=== PATIENT | female | born 1950 | race Caucasian/White ===

== ENCOUNTER 2017-04-01 08:50 | Outpatient (CLI) | payer OTHER | END 2017-04-01 08:51 | disposition critical access hospital (66) | DX: M25.551 Pain in right hip (principal); M25.511 Pain in right shoulder; R51 Headache; W18.30XA Fall on same level, unspecified, initial encounter | CPT/HCPCS: A0425; A0427 ==

== ENCOUNTER 2017-04-01 09:08 | Emergency (ER) | payer OTHER ==
--- NOTE | 2017-04-01 09:23 | ED Physician Documentation ---
PD HPI LOWER EXT INJURY - Stated complaint Stated Complaint: GLF - RT HIP PAIN - Chief complaint Chief Complaint: Ext Problem - History obtained from History obtained from: Patient - History of Present Illness PD HPI LOW EXT INJURY LOCATION: Right, Hip, Other (also struck elbow) Type of injury: Fall (has prior left hip surgery and has poor balance and position sense due to nueropathy, so fell yesterday. No syncope.) Where injury occurred: Home Timing - onset: Yesterday Timing - details: Abrupt onset, Still present Worsened by: Moving, Other (walking) Associated symptoms: Weakness (chronicaly). No: Swelling Contributing factors: Prior ortho surgery (had fracture of that hip remotely with pins, and those were removed after healing due to pains from screws.). No : Anticoagulated Similar symptoms before: Diagnosis (prior hip fracture) Recently seen: Not recently seen Review of Systems Cardiac: denies: Chest pain / pressure GI: denies: Abdominal Pain Neurologic: denies: Focal weakness, Altered mental status, Headache, Head injury PD PAST MEDICAL HISTORY - Past Medical History Neuro: Headache/migraine, Peripheral neuropathy Endocrine/Autoimmune: Other GI: GERD : Incontinence HEENT: Glaucoma Psych: Depression Musculoskeletal: Osteoporosis, Chronic back pain, Other Derm: None - Past Surgical History Past Surgical History: Yes Ortho: Spine surgery - Present Medications Home Medications: Ambulatory Orders Medication Instructions Recorded Confirmed Escitalopram Oxalate [Lexapro] 40 mg PO DAILY 03/31/14 04/01/17 Pantoprazole Sodium 20 mg PO DAILY 12/04/15 04/01/17 Gabapentin 900 mg PO BID 03/10/16 04/01/17 Docusate Sodium 100 mg PO DAILY #30 capsule 04/01/17 Hydrocodone/Acetaminophen [[place] 1 each PO Q6H PRN #20 tablet 04/01/17 5-325 Tablet] Naproxen 375 mg PO BID #20 tablet 04/01/17 Trazodone HCl 50 mg PO DAILY 04/01/17 04/01/17 - Allergies Allergies/Adverse Reactions: Allergies Allergy/AdvReac Type Severity Reaction Status Date / Time aspirin [From Percodan] Allergy Unknown Verified 04/22/14 15:12 erythromycin base Allergy Unknown Verified 04/22/14 15:12 [Erythromycin Base] oxycodone HCl * Allergy Unknown Verified 04/22/14 15:12 [From Percodan] oxycodone terephthalate * Allergy Unknown Verified 04/22/14 15:12 [From Percodan] Penicillins Allergy Unknown Verified 04/22/14 15:12 - Social History Does the pt smoke?: No Smoking Status: Former smoker Does the pt drink ETOH?: Yes Does the pt have substance abuse?: No - POLST Patient has POLST: No PD ED PE NORMAL - Vitals Vital signs reviewed: Yes - General General: Alert and oriented X 3, Well developed/nourished - HEENT HEENT: Atraumatic - Neck Neck: Supple, no meningeal sign, No bony TTP, No adenopathy - Cardiac Cardiac: RRR, No murmur - Respiratory Respiratory: Clear bilaterally, Other (no chestwall tenderness) - Back Back: No spinal TTP - Derm Derm: Normal color, Warm and dry - Extremities Extremities: No edema, No calf tenderness / cord, Other (right elbow tender posteriorly. Can fully extend. No pain with supination. Right hip tender over trochanter area. Not painful for impaction nor straction, but does hurt with rotation. ) Results - Vitals Vitals: Oxygen O2 Source Room air - Rads (name of study) hip Radiology: Prelim report reviewed (possible trochanteric fracture) hip CT Radiology: Prelim report reviewed (greater trochanteric fracture, but not through main neck) elbow xray Radiology: Prelim report reviewed (no fracture; small effusion) PD MEDICAL DECISION MAKING - ED course Complexity details: reviewed results, considered differential, d/w patient, d/w sales consultant (Dr. Heredia looked at CT scan as well) Departure - Departure Disposition: 01 Home, Self Care Clinical Impression: Facial contusion Qualifiers: Encounter type: initial encounter Qualified Code(s): S00.83XA - Contusion of other part of head, initial encounter Greater trochanter fracture Qualifiers: Encounter type: initial encounter Fracture type: closed Fracture alignment: nondisplaced Laterality: right Qualified Code(s): S72.114A - Nondisplaced fracture of greater trochanter of right femur, initial encounter for closed fracture Elbow contusion Qualifiers: Encounter type: initial encounter Laterality: right Qualified Code(s): S50.01XA - Contusion of right elbow, initial encounter Fall from slip, trip, or stumble Qualifiers: Encounter type: initial encounter Qualified Code(s): W01.0XXA - Fall on same level from slipping, tripping and stumbling without subsequent striking against object, initial encounter Condition: Stable Record reviewed to determine appropriate education?: Yes Follow-Up: Vaibhav Ruiz MD [Provider Admit Priv/Credential] - Prescriptions: Docusate Sodium 100 mg PO DAILY #30 capsule Naproxen 375 mg PO BID #20 tablet Hydrocodone/Acetaminophen [[place] 5-325 Tablet] 1 each PO Q6H PRN #20 tablet PRN Reason: Pain Comments: Activity as tolerated with walker/wheelchair. Naproxen low dose twice daily for a week if tolerated. Add Tylenol or hydrocodone for pain every 6 hours if needed for pain. Daily stool softener and drink lots of fluids. Other usual medications. Discharge Date/Time: 04/01/17 14:52
[2017-04-01] MEDS ORDERED: HYDROmorphone 1 MG/ML SYRINGE IVP STA ×2 (10:10→12:02)
[2017-04-01] MEDS ORDERED: HYDROmorphone 1 MG/ML SYRINGE ONE ×2 (10:18→12:06)
--- NOTE | 2017-04-01 11:32 | XRAY Report ---
EXAM: RIGHT HIP AND PELVIS RADIOGRAPHY EXAM DATE: 04/01/2017 11:00 AM. HISTORY: Fall with injury. COMPARISONS: Right femur series 03/31/2014. TECHNIQUE: 1 view of the pelvis and 1 view of the hip. FINDINGS: Bones: Slight fragmentation is noted at the greater trochanter with minimal lucency, not previously s een. Nondisplaced greater trochanteric or intertrochanteric fracture is not excluded. Postoperative c hanges from lumbosacral spinal fusion procedure are noted. Joints: The bilateral hip, pubis symphysis, and sacroiliac joints are preserved. Soft Tissues: Normal. No soft tissue swelling. IMPRESSION: Central lucency and fragmentation in the region of the right greater trochanter. Nondispl aced fracture is not excluded. Consider CT for further evaluation. [facility] Referring Provider Line: [phone] SITE ID: [id number]
--- NOTE | 2017-04-01 11:37 | XRAY Report ---
EXAM: RIGHT/LEFT ELBOW RADIOGRAPHY EXAM DATE: 04/01/2017 11:01 AM. CLINICAL HISTORY: Elbow pain status post fall with injury. COMPARISON: None. TECHNIQUE: 3 views. FINDINGS: Bones: The bones are osteopenic. No fractures or bone lesions. Joints: Small joint effusion. Soft Tissues: Normal. No soft tissue swelling. IMPRESSION: Small joint effusion at the elbow with no fracture identified. [facility] Referring Provider Line: [phone] SITE ID: [id number]
[2017-04-01] MEDS ORDERED: LORazepam 2 MG/ML SYRINGE IVP STA (12:05)
[2017-04-01] MEDS ORDERED: LORazepam 2 MG/ML SYRINGE ONE (12:06)
--- NOTE | 2017-04-01 13:21 | CT Preliminary Report ---
Exam: CT Lower Extremity Right W/O IMPRESSION: 1. Small nondisplaced acute hairline fractures are seen in the right greater trochanter not extending into the femoral shaft, femoral neck or the lesser trochanter. 2. No acute fracture in the hip joint. Right hip mild subcapital deformity in the femoral neck consis tent with old fracture deformity status post prior internal fixation and subsequent removal of hardwa re. Screw tracks are still seen in the femoral neck. 3. Prior L5-S1 posterior instrumental fusion. Lucency is present around the 4 pedicle screws suggesti ve of mild loosening. 4. Degenerative changes in the sacroiliac joints, pubic symphysis and both hips. 5. Osteopenia. [facility] SITE ID: [id number]
--- NOTE | 2017-04-01 13:24 | CT Report ---
EXAM: CT BONY PELVIS WITHOUT CONTRAST EXAM DATE: 04/01/2017 12:53 PM. CLINICAL HISTORY: Fall. Likely trochanter fracture on xray. COMPARISON: Right hip series 04/01/2017. TECHNIQUE: Thin-section axial images were acquired of the pelvis without contrast. Post-processing: C oronal and sagittal reformats. Other: None. In accordance with CT protocol optimization, one or more of the following dose reduction techniques w ere utilized for this exam: automated exposure control, adjustment of mA and/or KV based on patient s ize, or use of iterative reconstructive technique. FINDINGS: Bones: Osteopenia. Right hip mild subcapital deformity in the femoral neck consistent with old fractu re deformity status post prior internal fixation and subsequent removal of hardware. Screw tracks are still seen in the femoral neck. Small nondisplaced acute hairline fractures are seen in the right gr eater trochanter not extending into the femoral shaft, femoral neck or the lesser trochanter. Prior L 5-S1 posterior instrumental fusion. Lucency is present around the 4 pedicle screws suggestive of mild loosening. Sacroiliac Joints: Degenerative changes are present. No widening, erosions, or sclerosis. Symphysis Pubis: Degenerative changes are present. Right Hip: Mild osteoarthritis. No calcified loose bodies. Left Hip: T Mild osteoarthritis. No calcified loose bodies. Musculature: Severe fatty atrophy of bilateral gluteus minimus, mildly in the disk medius. Pelvic Cavity: The visualized bowel, bladder, and reproductive organs are unremarkable on this noncon trast exam. Other: No lymphadenopathy. No free air or free fluid. The other visualized soft tissues are unremarka ble. IMPRESSION: 1. Small nondisplaced acute hairline fractures are seen in the right greater trochanter not extending into the femoral shaft, femoral neck or the lesser trochanter. 2. No acute fracture in the hip joint. Right hip mild subcapital deformity in the femoral neck consis tent with old fracture deformity status post prior internal fixation and subsequent removal of hardwa re. Screw tracks are still seen in the femoral neck. 3. Prior L5-S1 posterior instrumental fusion. Lucency is present around the 4 pedicle screws suggesti ve of mild loosening. 4. Degenerative changes in the sacroiliac joints, pubic symphysis and both hips. 5. Osteopenia. [facility] Referring Provider Line: [phone] SITE ID: [id number]
[2017-04-01] MEDS ORDERED: KETOROLAC 60 MG/2 ML VIAL IVP STA (14:06)
[2017-04-01] MEDS ORDERED: HYDROcod/ACETAM 5/325 MG TABLET PO STA (14:06)
[2017-04-01] MEDS ORDERED: KETOROLAC 30 MG/ML VIAL ONE (14:16)
[2017-04-01] MEDS ORDERED: HYDROcod/ACETAM 5/325 MG TABLET ONE (14:17)
[2017-04-01 14:35] VITALS: BP 154/80
--- NOTE | 2017-04-01 15:51 | CONSULTATION NOTE ---
DATE OF CONSULTATION: 04/01/2017 00:00:00 REQUESTING PROVIDER: REFERRING PHYSICIAN: Dr. Chen of the emergency room. CHIEF COMPLAINT: "My right hip hurts." HISTORY OF PRESENT ILLNESS: The patient is a 66-year-old female who apparently fell onto he r right hip last evening. Noted immediate pain and difficulty standing and weightbearing on the right lower extremity. Her medical history is significant for a prior right hip fracture that required a p in fixation in the past. Pins have been removed and fracture healed uneventfully. Because her symptom s persisted by this morning, she was taken by her to the emergency room for further evaluatio n of her recent injury. The patient denies any loss of conscious, nausea, vomiting, or other injuries as a result of this recent fall. No distal weakness or numbness noted. PHYSICAL EXAMINATION: The patient's right hip was evaluated. She has primarily tenderness on palpatio n over the greater trochanter. No anterior groin tenderness on palpation. Minimal leg deformity was n oted. The leg was slightly externally rotated more than the opposite side. No gross shortening was no jan. Had some mild pain with hip flexion and rotation. Had primarily posterior trochanteric tendernes s on palpation. Moves her toes well. Sensation intact throughout. Good capillary filling noted. IMAGES: X-rays taken of the right hip were reviewed and showed the suggestion of possible nondisplace d small avulsion fracture off the tip of the greater trochanter. CT scan of the right hip confirmed what appeared to be a minimally displaced avulsion type fracture o f the greater trochanter. Does not appear to be propagating to the lesser trochanter at all. ASSESSMENT: 1. Minimally displaced avulsion type fracture of the right greater trochanter. 2. Status post left femoral neck fracture that required a pin fixation - fracture healed uneventfully and the hardware has been removed. PLAN: Advise the patient that surgery does not appear to be indicated at this point. Would treat her fracture symptomatically. We will try local ice and oral analgesics. May be weightbearing as tolerate d in this right lower extremity, ambulating with walker, weightbearing as tolerated. She should likel y followup with orthopedic clinic in about 2 weeks for followup clinical examination and x-rays as ne eded. JOB #: [id number] EXT JOB #:[id number]
== END 2017-04-01 14:52 | disposition home or self-care (01) ==
LOC: EDUNIT# → ED 09:08
DX: S72.114A Nondisplaced fracture of greater trochanter of right femur, initial encounter for closed fracture (principal); S00.83XA Contusion of other part of head, initial encounter; S50.01XA Contusion of right elbow, initial encounter; W01.0XXA Fall on same level from slipping, tripping and stumbling without subsequent striking against object, initial encounter; Y92.019 Unspecified place in single-family (private) house as the place of occurrence of the external cause; K21.9 Gastro-esophageal reflux disease without esophagitis; G62.9 Polyneuropathy, unspecified; Z87.891 Personal history of nicotine dependence
CPT/HCPCS: 73080; 73502; 73700; 96374; 96375; 96376; 99284; A9270; J1170; J2060

== ENCOUNTER 2017-12-05 09:49 | Emergency (ER) | payer MEDICARE ==
[2017-12-05 11:22] VITALS: BP 150/78
--- NOTE | 2017-12-05 12:06 | ED Physician Documentation ---
History of Present Illness - Stated complaint Stated Complaint: RT LEG SWOLLEN - Chief complaint Chief Complaint: Ext Problem - History obtained from History obtained from: Patient, Family - History of Present Illness Timing: How many weeks ago (1) - Additonal information Additional information: 66-year-old female is began to experience some swelling in her right calf about 1 week ago she is undergoing some physical therapy after a hip fracture in March of last year and the physical therapist asked her to come to the ED for evaluation prior to exercising today. The patient is not having a lot of pain in the leg but does note the swelling and firmness to the posterior aspect of the calf. Review of Systems Constitutional: denies: Fever Eyes: denies: Decreased vision Ears: denies: Ear pain Nose: denies: Congestion Throat: denies: Sore throat Cardiac: denies: Chest pain / pressure, Palpitations Respiratory: denies: Dyspnea, Cough GI: denies: Abdominal Pain, Nausea, Vomiting : denies: Dysuria Skin: denies: Rash Musculoskeletal: reports: Extremity swelling. denies: Neck pain, Back pain, Joint pain, Joint swelling, Pain with weight bearing Neurologic: denies: Generalized weakness, Focal weakness, Numbness PD PAST MEDICAL HISTORY - Past Medical History Neuro: Headache/migraine, Peripheral neuropathy Endocrine/Autoimmune: Other GI: GERD : Incontinence HEENT: Glaucoma Psych: Depression Musculoskeletal: Osteoporosis, Chronic back pain, Other Derm: None - Past Surgical History Past Surgical History: Yes Ortho: Spine surgery - Present Medications Home Medications: Ambulatory Orders Medication Instructions Recorded Confirmed Gabapentin 900 mg PO BID 03/10/16 12/05/17 Hydrocodone/Acetaminophen [[place] 1 each PO Q6H PRN #20 tablet 04/01/17 12/05/17 5-325 Tablet] Trazodone HCl 50 mg PO DAILY 04/01/17 12/05/17 Butalbital/Aspirin/Caffeine 50 mg PO PRN PRN 12/05/17 12/05/17 [Fiorinal 50-325-40 mg Capsule] Escitalopram Oxalate [Lexapro] 40 mg PO DAILY 12/05/17 12/05/17 - Allergies Allergies/Adverse Reactions: Allergies Allergy/AdvReac Type Severity Reaction Status Date / Time aspirin [From Percodan] Allergy Unknown Verified 12/05/17 11:32 erythromycin base Allergy Unknown Verified 12/05/17 11:32 [Erythromycin Base] oxycodone HCl * Allergy Unknown Verified 12/05/17 11:32 [From Percodan] oxycodone terephthalate * Allergy Unknown Verified 12/05/17 11:32 [From Percodan] Penicillins Allergy Unknown Verified 12/05/17 11:32 - Social History Does the pt smoke?: No Smoking Status: Never smoker Does the pt drink ETOH?: Yes Does the pt have substance abuse?: No - POLST Patient has POLST: No PD ED PE NORMAL - Vitals Vital signs reviewed: Yes (normal) - General General: Alert and oriented X 3, No acute distress, Well developed/nourished - HEENT HEENT: Atraumatic, PERRL - Respiratory Respiratory: No respiratory distress - Derm Derm: Normal color, Warm and dry, No rash - Extremities Extremities: No deformity, Other (There is swelling and firmness to the posterior calf on the right side. There is not a lot of tenderness and the swelling extends from the popliteil fossa to the ankle. The distal n/v is intact. ) - Neuro Neuro: Alert and oriented X 3, data consultant 2-12 intact, No motor deficit, No sensory deficit, Normal speech Eye Opening: Spontaneous Motor: Obeys Commands Verbal: Oriented GCS Score: 15 - Psych Psych: Normal mood, Normal affect Results - Vitals Vitals: Vital Signs - 24 hr 12/05/17 12/05/17 10:07 11:20 Temperature 36.6 C Heart Rate 70 66 Respiratory 18 18 Rate Blood Pressure 128/59 L 150/78 H O2 Saturation 99 100 Oxygen O2 Source Room air - Rads (name of study) duplex Radiology: Prelim report reviewed (no DVT), EMP read indepedently, See rad report PD MEDICAL DECISION MAKING - ED course Complexity details: reviewed results, re-evaluated patient, considered differential, d/w patient, d/w family ED course: 66 y/o female with a history of left hip fracture 7 months ago has been in physical therapy and continues to have some problem with the right leg and over the past week she has noticed swelling in the foot and the calf. She has not had this previously and she does not think that she is doing more than she usually has part of the amount of physical activity she is doing. She was sent here today for evaluation of deep vein thrombosis and this is not present. She will be able to return to her physical therapy. I believe the swelling she is having her leg is related to the prior injury. Departure - Departure Disposition: 01 Home, Self Care Clinical Impression: Strain of calf muscle Qualifiers: Encounter type: initial encounter Laterality: right Qualified Code(s): S86.811A - Strain of other muscle(s) and tendon(s) at lower leg level, right leg , initial encounter Condition: Stable Instructions: ED Strain Muscle Ext Follow-Up: Your, doctor [Other]
--- NOTE | 2017-12-05 16:18 | Ultrasound Report ---
DATE OF SERVICE: 12/05/2017 RIGHT LEG VENOUS DUPLEX: 12/05/2017 CLINICAL INDICATION: Swelling. COMPARISON: 01/20/2016 TECHNIQUE: Real-time sonographic vascular imaging was performed by the brown[place] program coordinator through the right leg utilizing both color flow and Doppler spectral analysis. Multiple client account representative static images were saved for review. FINDINGS: A right lower extremity venous sonogram is performed revealing the common femoral, superficial femoral, profunda femoris, and popliteal veins to be adequately visualized without intraluminal defects. There is normal venous compression, augmentation, phasicity, and spontaneity of venous flow. In the calf, the visualized more cephalad portions of posterior tibial and peroneal veins are grossly compressible, without filling defects. IMPRESSION: NO EVIDENCE OF DEEP VENOUS THROMBOSIS. TD: 12/05/2017 17:17
== END 2017-12-05 13:10 | disposition home or self-care (01) ==
LOC: ED 09:49
DX: S86.811A Strain of other muscle(s) and tendon(s) at lower leg level, right leg, initial encounter (principal); X58.XXXA Exposure to other specified factors, initial encounter; G62.9 Polyneuropathy, unspecified
CPT/HCPCS: 99283

== ENCOUNTER 2018-05-23 10:09 | Emergency (ER) | payer MEDICARE ==
[2018-05-23 10:32] VITALS: BP 145/62
--- NOTE | 2018-05-23 11:08 | XRAY Report ---
Procedure Date: 05/23/2018 Accession Number: [id number] / [id number] Procedure: XR - Foot 3 View LT CPT Code: FULL RESULT: EXAM: LEFT FOOT RADIOGRAPHY EXAM DATE: 05/23/2018 10:52 AM. CLINICAL HISTORY: Foot pain after injury two week ago, swollen. COMPARISON: None. TECHNIQUE: 3 views. FINDINGS: Bones: Probable nondisplaced, mildly angulated fracture through the neck of the second metatarsal. Oblique fracture through the neck of the third metatarsal with one half shaft width displacement. No definite healing change is demonstrated at either fracture site. Diffuse demineralization. Joints: No dislocation. Soft Tissues: Mild soft tissue swelling. IMPRESSION: 1. Acute/subacute displaced fracture of the distal third metatarsal. 2. Probable nondisplaced acute/subacute fracture of the distal second metatarsal. [facility]
--- NOTE | 2018-05-23 13:20 | ED Physician Documentation ---
PD HPI LOWER EXT INJURY - Stated complaint Stated Complaint: LF FOOT INJURY - Chief complaint Chief Complaint: Ext Problem - History obtained from History obtained from: Patient, Family - History of Present Illness PD HPI LOW EXT INJURY LOCATION: Left, Foot Type of injury: Fall, Twist Where injury occurred: Home Timing - onset: How many days ago (10) Timing - details: Abrupt onset, Still present Improved by: Rest, Immobilization Worsened by: Moving, Palpating Associated symptoms: Swelling Contributing factors: Prior ortho surgery Similar symptoms before: Has not had sx before Recently seen: Not recently seen - Additional information Additional information: patient is a 67 year old female with a history of osteopenia who is presenting to the emergency department for left foot pain. patient states that she tripped over a baby gate about 10 days ago. patient land on her foot and the pain has persisted since that time so she came to the emergency department to be evaluated. Review of Systems Ten Systems: 10 systems reviewed and negative PD PAST MEDICAL HISTORY - Past Medical History Past Medical History: Yes Endocrine/Autoimmune: Other GI: GERD : Incontinence HEENT: Glaucoma Psych: Depression, Anxiety Musculoskeletal: Osteoporosis, Chronic back pain, Other Derm: None Other Past Medical History: neuropathy - Past Surgical History Past Surgical History: Yes Ortho: Spine surgery /CAREER TECHNICAL SUPERVISOR: Hysterectomy - Present Medications Home Medications: Ambulatory Orders Medication Instructions Recorded Confirmed Gabapentin 900 mg PO BID 03/10/16 12/05/17 Hydrocodone/Acetaminophen [[place] 1 each PO Q6H PRN #20 tablet 04/01/17 12/05/17 5-325 Tablet] Trazodone HCl 50 mg PO DAILY 04/01/17 12/05/17 Butalbital/Aspirin/Caffeine 50 mg PO PRN PRN 12/05/17 12/05/17 [Fiorinal 50-325-40 mg Capsule] Escitalopram Oxalate [Lexapro] 40 mg PO DAILY 12/05/17 12/05/17 - Allergies Allergies/Adverse Reactions: Allergies Allergy/AdvReac Type Severity Reaction Status Date / Time aspirin [From Percodan] Allergy Unknown Verified 12/05/17 11:32 erythromycin base Allergy Unknown Verified 12/05/17 11:32 [Erythromycin Base] oxycodone HCl * Allergy Unknown Verified 12/05/17 11:32 [From Percodan] oxycodone terephthalate * Allergy Unknown Verified 12/05/17 11:32 [From Percodan] Penicillins Allergy Unknown Verified 12/05/17 11:32 - Social History Does the pt smoke?: No Smoking Status: Never smoker Does the pt drink ETOH?: Yes Does the pt have substance abuse?: Yes Substance Use and Type: Marijuana - Immunizations Immunizations are current?: Yes - POLST Patient has POLST: No PD ED PE NORMAL - Vitals Vital signs reviewed: Yes - General General: Alert and oriented X 3 - HEENT HEENT: Atraumatic - Cardiac Cardiac: RRR - Respiratory Respiratory: No respiratory distress - Neuro Neuro: Alert and oriented X 3, No motor deficit, No sensory deficit Eye Opening: Spontaneous PD ED PE EXPANDED - Cardiac Cardiac: Pedal strong equal - Extremities Extremities: Left foot (tenderness and swelling of left foot) Results - Vitals Vitals: Vital Signs - 24 hr 05/23/18 10:26 Temperature 36.6 C Heart Rate 69 Respiratory 16 Rate Blood Pressure 145/62 H O2 Saturation 100 Oxygen O2 Source Room air - Rads (name of study) left foot Radiology: Final report received (2nd and possible third metatarsal fracture(s)) PD MEDICAL DECISION MAKING - ED course Complexity details: reviewed old records, reviewed results, re-evaluated patient , considered differential, d/w patient ED course: Patient was seen and examined at bedside. Patient had already been to imaging. results were reviewed and consistent acute/sub acute fractures. Patient was placed in a boot and a disc was made for the patient. Patient required no further inpatient work up and was stable for discharge with outpatient follow up. - Sepsis Event Vital Signs: Vital Signs - 24 hr 05/23/18 10:26 Temperature 36.6 C Heart Rate 69 Respiratory 16 Rate Blood Pressure 145/62 H O2 Saturation 100 Oxygen O2 Source Room air Departure - Departure Disposition: 01 Home, Self Care Clinical Impression: Foot fracture, left Condition: Good Instructions: ED Boot Aircast Walker, ED Fx Foot Follow-Up: Aleks Heredia MD [Provider Admit Priv/Credential] - Within 3 Days Comments: Your symptoms today are being caused by a broken foot. you have been given a disc and an air cast. You should follow up with your doctor or Dr. Heredia's office. you should try to keep it elevated as much as possible. You should ice your foot at least 4 times a day. You may return to the emergency department at any time for new, worsening or uncontrollable symptoms.
== END 2018-05-23 13:39 | disposition home or self-care (01) ==
LOC: ED 10:09
DX: S92.332A Displaced fracture of third metatarsal bone, left foot, initial encounter for closed fracture (principal); W22.8XXA Striking against or struck by other objects, initial encounter; Y92.009 Unspecified place in unspecified non-institutional (private) residence as the place of occurrence of the external cause; X50.9XXA Other and unspecified overexertion or strenuous movements or postures, initial encounter; G62.9 Polyneuropathy, unspecified; Z79.82 Long term (current) use of aspirin
CPT/HCPCS: 99282; 99283

== ENCOUNTER 2020-08-22 10:07 | Outpatient (CLI) | payer MEDICARE | END 2020-08-22 23:59 | disposition home or self-care (01) | LOC: LAB.R 10:07 | PROVIDERS: ATTEND General Practice | DX: R19.7 Diarrhea, unspecified (principal) | CPT/HCPCS: 81599; 83630; 87045; 87046; 87177; 87209; 87329; 87427; 87493 ==

== ENCOUNTER 2020-09-19 08:00 | Outpatient (CLI) | payer MEDICARE | END 2020-09-19 23:59 | disposition home or self-care (01) | LOC: LAB.R 08:00 | PROVIDERS: ATTEND General Practice | DX: R19.7 Diarrhea, unspecified (principal) | CPT/HCPCS: 87493 ==

== ENCOUNTER 2021-04-21 10:36 | Outpatient (CLI) | payer MEDICARE ==
[2021-04-21 11:05] LABS: CALCIUM, IONIZED 1.15 mmol/L (1.15-1.33); VBG PH 7.37 (7.31-7.41)
[2021-04-21 11:18] LABS: ALT ALANINE AMINOTRANSFERASE < 10 IU/L (10-60); AST ASPARTATE AMINOTRANSFERASE 37 IU/L (10-42); CREATININE 0.5 mg/dL (0.4-1.0); GFR - MDRD 121 (>89); POTASSIUM 3.7 mmol/L (3.5-5.0)
== END 2021-04-21 10:37 | disposition home or self-care (01) ==
LOC: LAB 10:36
DX: E21.3 Hyperparathyroidism, unspecified (principal); R68.89 Other general symptoms and signs
CPT/HCPCS: 36415; 82330; 82565; 83970; 84132; 84450; 84460

== ENCOUNTER 2023-03-31 10:25 | Outpatient (CLI) | payer MEDICARE ==
[2023-03-31 11:25] LABS: CREATININE 0.4 mg/dL (0.4-1.0)
[2023-03-31 11:47] LABS: ESTIMATED AVERAGE GLUCOSE 108 mg/dL (70-100); HEMOGLOBIN A1c% 5.4 % (4.27-6.07)
== END 2023-03-31 10:26 | disposition home or self-care (01) ==
LOC: LAB 10:25
PROVIDERS: ATTEND Internal Medicine
DX: M81.0 Age-related osteoporosis without current pathological fracture (principal); R71.8 Other abnormality of red blood cells
CPT/HCPCS: 36415; 82306; 82565; 82607; 82947; 83036; 84450

== ENCOUNTER 2023-09-13 10:53 | Outpatient (CLI) | payer MEDICARE | END 2023-09-13 10:54 | disposition critical access hospital (66) | LOC: EMS 10:53 | DX: F41.9 Anxiety disorder, unspecified (principal); R51.9 Headache, unspecified; G20.C Parkinsonism, unspecified; Z74.01 Bed confinement status; Z74.2 Need for assistance at home and no other household member able to render care | CPT/HCPCS: A0425; A0429 ==

== ENCOUNTER 2023-09-13 11:16 | Emergency (ER) | payer MEDICARE ==
[2023-09-13] MEDS ORDERED: LORazepam 2 MG/ML VIAL IM STA ×2 (12:04→14:23)
--- NOTE | 2023-09-13 12:06 | ED Physician Documentation ---
History of Present Illness - Stated complaint Stated Complaint: ANXIETY - Chief complaint Chief Complaint: MHE - History obtained from History obtained from: Patient - History of Present Illness Timing: Today - Additonal information Additional information: Jazz James is a 72-year-old female with advanced Parkinson's who is bedridden. She is entirely dependent on her for care at home. 3 days ago he had a syncopal episode on his deck and collapsed with a GI bleed. He is still here at the hospital undergoing test and he has developed some paranoia and suicidal ideation. The patient's brother and sister came to her aid at her home for 2 days. They are leaving today. The patient has no care at home and she is unable to get out of bed by herself or to walk. Review of Systems Constitutional: denies: Fever Eyes: denies: Decreased vision Ears: denies: Ear pain Nose: denies: Rhinorrhea / runny nose, Congestion Throat: denies: Oral lesions / sores Cardiac: denies: Chest pain / pressure, Palpitations Respiratory: denies: Dyspnea, Cough GI: denies: Abdominal Pain, Nausea, Constipation, Diarrhea : reports: Incontinent. denies: Dysuria, Frequency Musculoskeletal: denies: Neck pain, Back pain, Extremity pain PD PAST MEDICAL HISTORY - Past Medical History Past Medical History: Yes Endocrine/Autoimmune: Other GI: GERD : Incontinence HEENT: Glaucoma Psych: Depression, Anxiety Musculoskeletal: Osteoporosis, Chronic back pain, Other Derm: None - Past Surgical History Past Surgical History: Yes Ortho: Spine surgery /[employer]: Hysterectomy - Present Medications Home Medications: Ambulatory Orders Medication Instructions Recorded Confirmed Gabapentin 900 mg PO BID 03/10/16 09/13/23 Hydrocodone/Acetaminophen [[place] 1 each PO Q6H PRN #20 tablet 04/01/17 09/13/23 5-325 Tablet] Trazodone HCl 50 mg PO DAILY 04/01/17 09/13/23 Butalbital/Aspirin/Caffeine 50 mg PO PRN PRN 12/05/17 09/13/23 [Fiorinal 50-325-40 mg Capsule] Escitalopram Oxalate [Lexapro] 40 mg PO DAILY 12/05/17 09/13/23 - Allergies Allergies/Adverse Reactions: Allergies Allergy/AdvReac Type Severity Reaction Status Date / Time aspirin [From Percodan] Allergy Unknown Verified 09/13/23 11:26 erythromycin base Allergy Unknown Verified 09/13/23 11:26 [Erythromycin Base] oxycodone HCl * Allergy Unknown Verified 09/13/23 11:26 [From Percodan] oxycodone terephthalate * Allergy Unknown Verified 09/13/23 11:26 [From Percodan] Penicillins Allergy Unknown Verified 09/13/23 11:26 - Social History Does the pt smoke?: No Smoking Status: Never smoker Does the pt drink ETOH?: No Does the pt have substance abuse?: No - Immunizations Immunizations are current?: Yes - POLST Patient has POLST: No PD ED PE NORMAL - Vitals Vital signs reviewed: Yes (normal ) - General General: Alert and oriented X 3, No acute distress, Well developed/nourished - HEENT HEENT: Atraumatic, PERRL, EOMI - Neck Neck: Supple, no meningeal sign, No bony TTP - Cardiac Cardiac: RRR, No murmur - Respiratory Respiratory: No respiratory distress, Clear bilaterally - Abdomen Abdomen: Normal bowel sounds, Soft, Non tender, Non distended, No organomegaly - Back Back: No CVA TTP, No spinal TTP - Derm Derm: Normal color, Warm and dry, No rash - Extremities Extremities: No deformity, No edema - Neuro Neuro: Alert and oriented X 3, classified ad taker 2-12 intact, No sensory deficit, Normal speech, Other (ambulation and trial of standing was not performed. ) Eye Opening: Spontaneous Motor: Obeys Commands Verbal: Oriented GCS Score: 15 - Psych Psych: Normal mood, Normal affect Results - Vitals Vitals: Vital Signs - 24 hr 09/13/23 11:22 Temperature 35.9 C L Heart Rate 91 Respiratory 16 Rate Blood Pressure 139/80 H O2 Saturation 99 Oxygen O2 Source Room air PD Medical Decision Making - ED course Complexity details: considered differential, d/w patient ED course: 72-year-old Jazz James has a history of Parkinson disease that is advanced and she is disabled by this. She is unable to care for herself at home and her is currently in the hospital. Family were caring for her until today and she has now come to the hospital unable to care for herself. She is unable to get out of bed or to walk. Her is her usual polisher sand. She is anxious but otherwise not ill. She is not a safe disposition from the ED. The social media editor is consulted in the case and is unable to arrange a polisher sand for the patient and she is boarded in the ED overnight. Her is hospitalized for blood loss anemia and he has become suicidal. At shift change her care is turned over to the oncoming ED physician anticipating a disposition tomorrow for which I will likely be present. She was anxious enough that it took 2 mg of IM ativan to help with anxiety. Departure - Departure Forms: PCP List
[2023-09-13] MEDS: CARBIDOPA/LEVODOPA 25 MG/100 MG TABLET PO SCH (20:56)
[2023-09-13] MEDS: LORazepam 1 MG TABLET PO SCH (20:56)
--- NOTE | 2023-09-13 21:27 | ED Physician Documentation ---
ED Addendum - Addendum Addendum: 09/13/23 21:27 Note changes during my shift, patient will continue to board awaiting further intervention by social work. Patient signed out to Dr. Farley for further care.
[2023-09-14] MEDS ORDERED: HYDROcod/ACETAM 5/325 MG TABLET PO STA (03:45)
[2023-09-14] MEDS: CARBIDOPA/LEVODOPA 25 MG/100 MG TABLET PO SCH ×3 (09:24→21:00)
[2023-09-14] MEDS ORDERED: LORazepam 2 MG/ML VIAL IM STA (14:24)
[2023-09-14] MEDS ORDERED: ACETAMINOPHEN 500 MG TABLET PO PRN (15:33)
[2023-09-14] MEDS: ACETAMINOPHEN 325 MG TABLET PO PRN (16:11)
--- NOTE | 2023-09-14 18:36 | ED Physician Documentation ---
ED Addendum - Addendum Addendum: 09/14/23 18:35 The patient remains anxious and does not have a ready disposition arranged. There is a problem with funding and lack of family in the vicinity. The patient's remains hospitalized and it has become obvious that the patient requires significant amount of help and is not able to care for herself. She remains in the emergency department with no clear disposition.
[2023-09-14] MEDS: LORazepam 1 MG TABLET PO SCH (21:00)
--- NOTE | 2023-09-14 22:50 | ED Physician Documentation ---
ED Addendum - Addendum Addendum: 09/14/23 22:50 No changes during my shift, I did write the patient for as needed Tylenol and Ativan as she has been receiving these medications. Patient signed out to Dr. Narvaez.
[2023-09-15] MEDS: ACETAMINOPHEN 325 MG TABLET PO PRN ×2 (05:53→19:08)
[2023-09-15] MEDS: PANTOPRAZOLE 40 MG TABLET PO SCH (06:02)
[2023-09-15] MEDS: LORazepam 1 MG TABLET PO PRN ×2 (08:29→13:48)
[2023-09-15] MEDS: CARBIDOPA/LEVODOPA 25 MG/100 MG TABLET PO SCH ×2 (08:29→19:08)
[2023-09-15] MEDS ORDERED: LORazepam 1 MG TABLET PO STA (16:41)
--- NOTE | 2023-09-15 16:44 | ED Physician Documentation ---
ED Addendum - Addendum Addendum: 09/15/23 16:43 72-year-old woman with Parkinson's is boarding in the emergency department as her was admitted to the hospital here and now reportedly has gone to different level of care and so is not at home and there is nobody able to take care of her. She was seen and examined at the bedside. Her main complaint was anxiety and she would like something to "knock her out." I offered an extra dose of lorazepam and a nighttime dose of trazodone. That is on top of already getting 2 mg of lorazepam at bedtime and 1 mg of lorazepam every 6 hours as needed. Per social work mostly we are waiting for multiple facilities to look at her packet but there is also a concern that she may need Medicaid enrollment. She is boarding in the emergency department given the above circumstances for disposition. Anticipate if she is still here tomorrow that she could move to the Extended stay patron program on the [place] when she has crossed the 72-hour abbey per protocol/policy.
[2023-09-15] MEDS ORDERED: CETIRIZINE 10 MG TABLET PO STA (18:58)
[2023-09-15] MEDS: LORazepam 1 MG TABLET PO SCH (19:09)
[2023-09-15] MEDS: traZODone 50 MG TABLET PO SCH (19:09)
--- NOTE | 2023-09-15 22:09 | ED Physician Documentation ---
ED Addendum - Addendum Addendum: 09/15/23 22:09 Patient endorsed to me by daytime physician at 10 PM shift change. Plan to monitor overnight. Endorsed to incoming daytime EDMD at 7 AM shift change.
[2023-09-16] MEDS: ACETAMINOPHEN 325 MG TABLET PO PRN ×2 (05:59→13:09)
[2023-09-16] MEDS: PANTOPRAZOLE 40 MG TABLET PO SCH (07:01)
[2023-09-16] MEDS: CARBIDOPA/LEVODOPA 25 MG/100 MG TABLET PO SCH ×2 (10:09→20:40)
[2023-09-16] MEDS: LORazepam 1 MG TABLET PO PRN ×2 (10:14→16:58)
--- NOTE | 2023-09-16 18:15 | ED Physician Documentation ---
ED Addendum - Addendum Addendum: 09/16/23 18:13 The patient has not had any complaints today. Continues with usual medications. Social work talked with the patient and also was looking into placement at facilities. There were records sent out to 4 5 facilities and we are waiting to hear back. There was some possibility of even trying to find placement today though would depend on facilities at the other end. Talking with our nursing staff in the ER and on the floor, there is currently 1 inpatient bed available due to staffing limitations and the decision was to keep that bed available for regular admissions rather than using it for this patient. Would reconsider that based on staffing and bed availability and if there is a longer delay in placement.
[2023-09-16 19:01] VITALS: O2SAT 100
[2023-09-16] MEDS: LORazepam 1 MG TABLET PO SCH (20:41)
[2023-09-16] MEDS: traZODone 50 MG TABLET PO SCH (20:41)
[2023-09-17 06:10] VITALS: BP 117/60
[2023-09-17] MEDS: ACETAMINOPHEN 325 MG TABLET PO PRN (08:04)
[2023-09-17] MEDS: PANTOPRAZOLE 40 MG TABLET PO SCH (08:04)
[2023-09-17] MEDS: CARBIDOPA/LEVODOPA 25 MG/100 MG TABLET PO SCH (09:51)
[2023-09-17] MEDS ORDERED: HYDROcod/ACETAM 5/325 MG TABLET PO STA (10:05)
--- NOTE | 2023-09-17 11:32 | ED Physician Documentation ---
ED Addendum - Addendum Addendum: 09/17/23 11:31 The patient was complaining of some pains in her hips and joints. She had been prescribed hydrocodone to take at home as needed. No other particular complaints at this time. No edema in the legs. No calf tenderness. No chest pain. I did write for a hydrocodone. At morning rounds, discussion was about having her as an extended stay patron. The nursing supervisor securities vault will consult with the administration and see if they approve as a first step in the process. If so we will place her in that status.
== END 2023-09-17 15:07 | disposition still patient (30) ==
LOC: EDUNIT# → ED 11:16
DX: Z74.2 Need for assistance at home and no other household member able to render care (principal); F41.9 Anxiety disorder, unspecified; M25.50 Pain in unspecified joint; M25.552 Pain in left hip; M25.551 Pain in right hip; G20.A1 Parkinson's disease without dyskinesia, without mention of fluctuations; Z76.4 Other boarder to healthcare facility; Z20.822 Contact with and (suspected) exposure to COVID-19
CPT/HCPCS: 87635; 96372; 97162; 97166; 97530; 97535; 99283; 99284; A9270; J2060; J8499

== ENCOUNTER 2024-01-26 08:00 | Outpatient (CLI) | payer MEDICARE | END 2024-01-26 23:59 | disposition home or self-care (01) | LOC: PC 08:00 | PROVIDERS: ATTEND Nurse Practitioner Gerontology | DX: Z51.5 Encounter for palliative care (principal); G89.29 Other chronic pain; M24.541 Contracture, right hand; F32.A Depression, unspecified; F41.9 Anxiety disorder, unspecified; G20.A1 Parkinson's disease without dyskinesia, without mention of fluctuations; Z71.89 Other specified counseling; Z79.899 Other long term (current) drug therapy; Z74.01 Bed confinement status | CPT/HCPCS: 99349 ==

== ENCOUNTER 2024-02-08 08:00 | Outpatient (CLI) | payer MEDICARE ==
[2024-02-08 15:04] LABS: THYROID STIMULATING HORMONE 1.98 uIU/mL (0.34-5.60)
[2024-02-08 15:57] LABS: ALBUMIN 3.5 g/dL (3.2-5.5); ALBUMIN/GLOBULIN RATIO 1.5 (1.0-2.2); BILIRUBIN,TOTAL 0.5 mg/dL (0.2-1.0); CALCIUM 9.7 mg/dL (8.5-10.3); CREATININE 0.4 mg/dL (0.6-1.3); POTASSIUM 4.3 mmol/L (3.5-4.5); TOTAL PROTEIN 5.9 g/dL (6.4-8.9)
== END 2024-02-08 23:59 | disposition home or self-care (01) ==
LOC: LAB.R 08:00
PROVIDERS: ATTEND Nurse Practitioner Gerontology
DX: G20.A1 Parkinson's disease without dyskinesia, without mention of fluctuations (principal); Z13.29 Encounter for screening for other suspected endocrine disorder
CPT/HCPCS: 80053; 84443

== ENCOUNTER 2024-02-12 08:00 | Outpatient (CLI) | payer MEDICARE | END 2024-02-12 23:59 | disposition home or self-care (01) | LOC: PC 08:00 | PROVIDERS: ATTEND Nurse Practitioner Adult Health | DX: Z51.5 Encounter for palliative care (principal); G20.A1 Parkinson's disease without dyskinesia, without mention of fluctuations; G89.29 Other chronic pain | CPT/HCPCS: 99426; 99427 ==

== ENCOUNTER 2024-02-22 08:00 | Outpatient (CLI) | payer MEDICARE ==
[2024-02-22 14:51] LABS: BASOPHILS % (AUTO) 0.4 %; EOSINOPHILS # (AUTO) 0.1 10^3/uL (0.0-0.7); EOSINOPHILS % (AUTO) 2.4 %; HCT - HEMATOCRIT 47.4 % (37.0-47.0); HGB - HEMOGLOBIN 14.9 g/dL (12.0-16.0); LYMPHOCYTES % (AUTO) 19.1 %; MEAN CORPUSCULAR HEMOGLOBIN 34.5 pg (27.0-31.0); MEAN CORPUSCULAR HGB CONC 31.4 g/dL (32.0-36.0); MEAN CORPUSCULAR VOLUME 109.7 fL (81.0-99.0); MEAN PLATELET VOLUME 11.6 fL (7.9-10.8); MONOCYTES # (AUTO) 0.5 10^3/uL (0.0-1.0); MONOCYTES % (AUTO) 9.2 %; NEUTROPHILS # (AUTO) 3.5 10^3/uL (1.5-6.6); NEUTROPHILS % (AUTO) 68.7 %; PLT - PLATELET COUNT 220 10^3/uL (130-450); RED BLOOD COUNT 4.32 10^6/uL (4.20-5.40); RED CELL DISTRIBUTION WIDTH 13.3 % (12.0-15.0)
== END 2024-02-22 23:59 | disposition home or self-care (01) ==
LOC: LAB.R 08:00
PROVIDERS: ATTEND Nurse Practitioner Gerontology
DX: G20.A1 Parkinson's disease without dyskinesia, without mention of fluctuations (principal)
CPT/HCPCS: 85025

== ENCOUNTER 2024-03-22 12:00 | Outpatient (CLI) | payer MEDICARE | END 2024-03-22 23:59 | disposition home or self-care (01) | LOC: PC 12:00 | PROVIDERS: ATTEND Nurse Practitioner Gerontology | DX: Z51.5 Encounter for palliative care (principal); G20.A1 Parkinson's disease without dyskinesia, without mention of fluctuations; G89.29 Other chronic pain; M25.561 Pain in right knee; F17.290 Nicotine dependence, other tobacco product, uncomplicated; Z63.8 Other specified problems related to primary support group; Z59.9 Problem related to housing and economic circumstances, unspecified; Z79.899 Other long term (current) drug therapy; Z74.09 Other reduced mobility | CPT/HCPCS: 99350 ==

== ENCOUNTER 2024-04-26 08:00 | Outpatient (CLI) | payer MEDICARE | END 2024-04-26 23:59 | disposition home or self-care (01) | LOC: PC 08:00 | PROVIDERS: ATTEND Nurse Practitioner Adult Health | DX: Z51.5 Encounter for palliative care (principal); G20.A1 Parkinson's disease without dyskinesia, without mention of fluctuations; G89.29 Other chronic pain; M54.9 Dorsalgia, unspecified; F41.8 Other specified anxiety disorders; R63.0 Anorexia; Z65.8 Other specified problems related to psychosocial circumstances; Z71.89 Other specified counseling; Z74.01 Bed confinement status; Z79.899 Other long term (current) drug therapy | CPT/HCPCS: 99350 ==

== ENCOUNTER 2024-05-13 08:00 | Outpatient (CLI) | payer MEDICARE | END 2024-05-13 23:59 | disposition home or self-care (01) | LOC: PC 08:00 | PROVIDERS: ATTEND Nurse Practitioner Gerontology | DX: Z51.5 Encounter for palliative care (principal); G20.A1 Parkinson's disease without dyskinesia, without mention of fluctuations | CPT/HCPCS: 99426 ==